=== PATIENT | male | born 2000 | race Caucasian/White ===

== ENCOUNTER 2020-07-11 08:13 | Emergency (ER) | payer OTHER, SELFPAY ==
[2020-07-11 08:25] VITALS: BP 134/55; PULSE 80; RESP 16; TEMP 36.9; O2SAT 97; BMI 29.0
--- NOTE | 2020-07-11 09:02 | ED_ITS ---
HPI - Eye Problem General Chief complaint: Eye Problems <Negrito Fisher NP - Last Filed: 07/11/20 16:48> Stated complaint: exposure work related <Negrito Fisher NP - Last Filed: 07/11/20 16:48> Time Seen by Provider: 07/11/20 08:46 <Negrito Fisher NP - Last Filed: 07/11/20 16:48> Related Data Home medications: Home Medications Medication Instructions Recorded Confirmed loratadine 07/11/20 <Negrito Fisher NP - Last Filed: 07/11/20 16:48> Allergies/adverse reactions: Allergies Allergy/AdvReac Type Severity Reaction Status Date / Time No Known Allergies Allergy Verified 07/11/20 08:29 <MELISA Iverson Last Filed: 07/11/20 16:48> Review of Systems Review of Systems: Constitutional: No Weight loss, No Fever, No Chills, No Night Sweats, No Fatigue, No Malaise ENT/Mouth: No Hearing loss, No Ear Pain, No Nasal Congestion, No Sinus Pain, No Hoarseness, No sore throat, No Rhinorrhea, No Swallowing Difficulty Eyes: No Eye Pain, No Swelling, No Redness, No Foreign Body, No Discharge, No Vision Changes Cardiovascular: No Chest Pain, No SOB, No Dyspnea on Exertion, No Orthopnea, No Edema, No Palpitations Respiratory: No Cough, No Sputum, No Wheezing, No Smoke Exposure, No Dyspnea Gastrointestinal: No Nausea, No Vomiting, No Diarrhea, No Constipation, No abdominal Pain, No Hematochezia, No Melena Genitourinary: no irregular bleeding, No Dysuria, No Urinary Frequency, No Hematuria, No Urinary Incontinence, No Urgency, No Flank Pain, No Urinary Flow Changes, No Hesitancy Musculoskeletal: No joint pain, No Myalgias, No Joint Swelling Skin: No Skin Lesions, No rash Neuro: No Weakness, No Numbness, No Paresthesias, No Loss of Consciousness, No Dizziness, No Headache Psych: No Anxiety/Panic, No Depression, No SI/HI/AH/VH, No Social Issues, Heme/Lymph: No Bruising, No Bleeding,No Lymphadenopathy Endocrine: No Polyuria, No Polydipsia, No Temperature Intolerance <MELISA Iverson Last Filed: 07/11/20 16:48> [facility] Past Medical History Medical History: Medical History (Updated 07/11/20 @ 09:18 by Negrito Fisher NP) No known health problems <Negrito Fisher NP - Last Filed: 07/11/20 16:48> Social History Social History: Social History Smoking Status: Never smoker Use of substances other than those prescribed or required for medical reasons: No Advance Directives: No Advance Directives Information Provided: No <Negrito Fisher NP - Last Filed: 07/11/20 16:48> Physical Exam Vital Signs and I&O and Narrative: Vital Signs and I&O: Vital Signs Temp 98.5 F 07/11/20 08:25 Pulse 80 07/11/20 08:25 Resp 16 07/11/20 08:25 BP 134/55 L 07/11/20 08:25 Pulse Ox 97 07/11/20 08:25 Intake & Output 07/10/20 07/11/20 07/11/20 18:59 06:59 18:59 Weight 99.79 kg Body Mass Index 29.0 <Negrito Fisher NP - Last Filed: 07/11/20 16:48> Vital Signs and I&O: Vital Signs Temp 98.5 F 07/11/20 08:25 Pulse 80 07/11/20 08:25 Resp 16 07/11/20 08:25 BP 134/55 L 07/11/20 08:25 Pulse Ox 97 07/11/20 08:25 Intake & Output 07/10/20 07/11/20 07/11/20 18:59 06:59 18:59 Weight 99.79 kg Body Mass Index 29.0 <Ki Lam DO - Last Filed: 07/11/20 17:39> Const: General: cooperative, healthy appearing, comfortable, no acute distress, well developed, alert and awake <Negrito Fisher NP - Last Filed: 07/11/20 16:48> HENMT: Head: Yes normal to inspection <Negrito Fisher NP - Last Filed: 07/11/20 16:48> Ears: hearing grossly normal bilaterally <Negrito Fisher NP - Last Filed: 07/11/20 16:48> Eyes: General: appearance normal, both eyes and all related structures <Negrito Fisher NP - Last Filed: 07/11/20 16:48> Visual Cronin: normal visual cronin by confrontation <Negrito Phillip - Last Filed: 07/11/20 16:48> Eyelids: Yes eyelids normal <[facility] Phillip DIRECTOR OF [employer] - Last Filed: 07/11/20 16:48> Conjunctivae: conjunctivae normal <[facility] Phillip - Last Filed: 07/11/20 16:48> Sclerae: sclerae normal <[facility] Fisher - Last Filed: 07/11/20 16:48> Corneas: corneas normal <[facility] Fisher - Last Filed: 07/11/20 16:48> Neck: Neck: Yes normal visual inspection <[facility] Fisher - Last Filed: 07/11/20 16:48> Chest: Chest palpation & inspection: normal inspection of the chest and normal palpation of entire chest wall <[facility] Fisher DIRECT[employer] - Last Filed: 07/11/20 16:48> Resp: Effort & Inspection: normal respiratory effort, audible wheezes, Actively coughing and respiratory distress <[facility] Fisher - Last Filed: 07/11/20 16:48> Cardio: Rate: regular rate <[facility] Fisher - Last Filed: 07/11/20 16:48> Skin: General skin exam: no rashes or lesions noted, elasticity normal and turgor normal <[facility] Fisher - Last Filed: 07/11/20 16:48> Wounds: no wounds <[facility] Fisher - Last Filed: 07/11/20 16:48> Nails: normal <[facility] Fisher, - Last Filed: 07/11/20 16:48> Extrem: General: Yes cyanosis <[facility] Fisher - Last Filed: 07/11/20 16:48> Psych: Appearance: grossly normal and well kempt <[facility] Fisher, DIRECTOR OF [employer] - Last Filed: 07/11/20 16:48> Course Course Hospital Course: select I agree with mid-level provider's documentation <Negrito Ahmaditawanda DIRECTOR OF [employer] - Last Filed: 07/11/20 16:48> MDM - Eye Problem MDM Narrative Medical decision making narrative: You otherwise healthy 20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 He is not sure if he got anything in there but definitely felt like it and did not see anything. He was sent here into the emergency room as precaution for evaluation. Exam overtly unremarkable. No complaint of pain or discomfort. Had a lengthy discussion with patient regarding exposure to blood product to the eye as probability general less than 1.8% for transmission. source patient unsure of stress minimal disease status. Post exposure labs/treatment offered. Requesting at this time to have screening with labs including hep panel, rapid HIV and defer treatment at this time. <Negrito Fisher NP - Last Filed: 07/11/20 16:48> Differential Diagnosis Differential diagnosis: Unlikely corneal abrasion, conjunctivitis, acute iritis, hyphema, periorbital cellulitis, subconjunctival hemorrhage, glaucoma and corneal ulcer <Negrito Fisher NP - Last Filed: 07/11/20 16:48> Medical Records Attestation: I reviewed the patient's medical records. <Negrito Fisher NP - Last Filed: 07/11/20 16:48> Lab Data Attestation: I reviewed the patient's lab results. <Negrito Fisher NP - Last Filed: 07/11/20 16:48> Result diagrams: : 07/11/20 09:01 07/11/20 09:01 <Negrito Fisher NP - Last Filed: 07/11/20 16:48> Labs: Lab Results 07/11/20 07/11/20 07/11/20 Range/Units 09:01 09:01 09:01 WBC 5.2 (4.8-10.8) X10*3/uL RBC 4.99 (4.60-5.80) X10*6/uL Hgb 14.9 (14.0-18.0) g/dl Hct 44.6 (42-52) % MCV 89.4 (80-98) fL MCH 29.9 (27.0-33.0) pg MCHC 33.4 (31.0-36.0) g/dl RDW 12.6 (11.0-16.0) % Plt Count 195 (160-400) X10*3/uL MPV 9.4 (9.4-12.4) fL Immature Gran % (Auto) 0.4 (0.0-0.4) % Neut % (Auto) 56.9 (45-73) % Lymph % (Auto) 26.8 (20-40) % [place] % (Auto) 13.0 H (2-11) % Eos % (Auto) 2.1 (0-4) % Baso % (Auto) 0.8 (0-2) % Neut # (Auto) 3.0 (2.0-8.3) X10*3/uL Lymph # (Auto) 1.4 (1.2-4.9) X10*3/uL [place] # (Auto) 0.7 (0.1-1.2) X10*3/uL Eos # (Auto) 0.1 (0.0-0.4) X10*3/uL Baso # (Auto) 0.0 (0.0-0.2) X10*3/uL Abs Immat Gran (auto) 0.02 (0.00-0.03) X10*3/uL Absolute Nucleated RBC 0.000 (0.0-0.012) X10*3/uL Nucleated RBC % (auto) 0.0 (0.0-0.2) /100WBC Sodium 138 (135-145) mmol/L Potassium 4.2 (3.3-5.1) mmol/l Chloride 105 (96-108) mmol/L Carbon Dioxide 25 (22-29) mmol/L Anion Gap 12 (12-20) BUN 22 H (9-16) mg/dL Creatinine 1.13 (0.5-1.4) mg/dL Estim Creat Clear Calc 127.4 Estimated GFR > 60 Random Glucose 95 (60-115) mg/dL Calcium 9.5 (8.4-10.2) mg/dL Total Bilirubin 0.3 (0.0-1.0) mg/dL Direct Bilirubin < 0.2 (0.0-0.5) mg/dL AST 46 H (5-37) U/L ALT 37 (0-40) U/L Alkaline Phosphatase 100 (39-117) U/L Total Protein 7.4 (6.5-8.0) g/dL Albumin 4.8 (3.5-5.0) g/dL Lipase 26 (8-78) U/L Hep Bs Antigen Negative (Negative) Hep Bs Antibody NONREACTIVE (Nonreactive) Hep B Core Total Ab Nonreactive (Nonreactive) Hepatitis C Ab (EIA) Nonreactive (Nonreactive) HIV 1&2 Ab/P24 Ag 4thGn Nonreactive (Nonreactive) <Negrito Fisher NP - Last Filed: 07/11/20 16:48> Lab Results 07/11/20 07/11/20 07/11/20 Range/Units 09:01 09:01 09:01 WBC 5.2 (4.8-10.8) X10*3/uL RBC 4.99 (4.60-5.80) X10*6/uL Hgb 14.9 (14.0-18.0) g/dl Hct 44.6 (42-52) % MCV 89.4 (80-98) fL MCH 29.9 (27.0-33.0) pg MCHC 33.4 (31.0-36.0) g/dl RDW 12.6 (11.0-16.0) % Plt Count 195 (160-400) X10*3/uL MPV 9.4 (9.4-12.4) fL Immature Gran % (Auto) 0.4 (0.0-0.4) % Neut % (Auto) 56.9 (45-73) % Lymph % (Auto) 26.8 (20-40) % [place] % (Auto) 13.0 H (2-11) % Eos % (Auto) 2.1 (0-4) % Baso % (Auto) 0.8 (0-2) % Neut # (Auto) 3.0 (2.0-8.3) X10*3/uL Lymph # (Auto) 1.4 (1.2-4.9) X10*3/uL [place] # (Auto) 0.7 (0.1-1.2) X10*3/uL Eos # (Auto) 0.1 (0.0-0.4) X10*3/uL Baso # (Auto) 0.0 (0.0-0.2) X10*3/uL Abs Immat Gran (auto) 0.02 (0.00-0.03) X10*3/uL Absolute Nucleated RBC 0.000 (0.0-0.012) X10*3/uL Nucleated RBC % (auto) 0.0 (0.0-0.2) /100WBC Sodium 138 (135-145) mmol/L Potassium 4.2 (3.3-5.1) mmol/l Chloride 105 (96-108) mmol/L Carbon Dioxide 25 (22-29) mmol/L Anion Gap 12 (12-20) BUN 22 H (9-16) mg/dL Creatinine 1.13 (0.5-1.4) mg/dL Estim Creat Clear Calc 127.4 Estimated GFR > 60 Random Glucose 95 (60-115) mg/dL Calcium 9.5 (8.4-10.2) mg/dL Total Bilirubin 0.3 (0.0-1.0) mg/dL Direct Bilirubin < 0.2 (0.0-0.5) mg/dL AST 46 H (5-37) U/L ALT 37 (0-40) U/L Alkaline Phosphatase 100 (39-117) U/L Total Protein 7.4 (6.5-8.0) g/dL Albumin 4.8 (3.5-5.0) g/dL Lipase 26 (8-78) U/L Hep Bs Antigen Negative (Negative) Hep Bs Antibody NONREACTIVE (Nonreactive) Hep B Core Total Ab Nonreactive (Nonreactive) Hepatitis C Ab (EIA) Nonreactive (Nonreactive) HIV 1&2 Ab/P24 Ag 4thGn Nonreactive (Nonreactive) <Ki Lam DO - Last Filed: 07/11/20 17:39> Discharge Plan Discharge Clinical Impression: Patient exposure to body fluids <Negrito Fisher NP - Last Filed: 07/11/20 16:48> Patient Disposition: Home, Self-Care <Negrito Fisher NP - Last Filed: 07/11/20 16:48> Instructions: Postexposure Prophylaxis (ED) <Negrito Fisher NP - Last Filed: 07/11/20 16:48> Prescriptions: No [facility] loratadine RF: 0 <Negrito Fisher NP - Last Filed: 07/11/20 16:48> Interventions: ED Discharge Assessment Last Done: 07/11/20 09:44 <Negrito Fisher NP - Last Filed: 07/11/20 16:48> Discharge Date/Time: 07/11/20 09:45 <Negrito Fisher NP - Last Filed: 07/11/20 16:48>
--- NOTE | 2020-07-11 09:05 | PC.NURSE ---
lab work drawn and sent to lab.
[2020-07-11 09:07] LABS: MANUAL DIFF FLAG NO
[2020-07-11 09:13] LABS: Basophils Percent Auto 0.8 % (0-2); Eosinophils Absolute Auto 0.1 X10*3/uL (0.0-0.4); Eosinophils Percent Auto 2.1 % (0-4); Hematocrit 44.6 % (42-52); Hemoglobin 14.9 g/dl (14.0-18.0); Imm Gran Abs Auto 0.02 X10*3/uL (0.00-0.03); Imm Gran Pct Auto 0.4 % (0.0-0.4); Lymphocytes Absolute Auto 1.4 X10*3/uL (1.2-4.9); Lymphocytes Percent Auto 26.8 % (20-40); Mean Corpuscular HGB Conc 33.4 g/dl (31.0-36.0); Mean Corpuscular Hemoglobin 29.9 pg (27.0-33.0); Mean Corpuscular Volume 89.4 fL (80-98); Mean Platelet Volume 9.4 fL (9.4-12.4); Monocytes Absolute Auto 0.7 X10*3/uL (0.1-1.2); Neutrophils Percent Auto 56.9 % (45-73); Platelet Count 195 X10*3/uL (160-400); Red Blood Count 4.99 X10*6/uL (4.60-5.80); Red Cell Distribution Width 12.6 % (11.0-16.0); White Blood Count 5.2 X10*3/uL (4.8-10.8)
[2020-07-11 09:41] LABS: Alanine Aminotransferase 37 U/L (0-40); Albumin Level 4.8 g/dL (3.5-5.0); Alkaline Phosphatase 100 U/L (39-117); Anion Gap 12 (12-20); Aspartate Amino Transferase 46 U/L (5-37); Bilirubin Direct < 0.2 mg/dL (0.0-0.5); Bilirubin Total 0.3 mg/dL (0.0-1.0); Blood Urea Nitrogen 22 mg/dL (9-16); Calcium 9.5 mg/dL (8.4-10.2); Carbon Dioxide 25 mmol/L (22-29); Chloride 105 mmol/L (96-108); Creatinine Clr Calc Pharmacy 127.4; Estimated Glomerular Filt Rate > 60; Glucose Random 95 mg/dL (60-115); Lipase 26 U/L (8-78); Potassium 4.2 mmol/l (3.3-5.1); Sodium 138 mmol/L (135-145); Total Protein 7.4 g/dL (6.5-8.0)
--- NOTE | 2020-07-11 09:59 | PC.NURSE ---
pt dc did not print and pt was departed. pt verbally understood. consent signed on last page of education material.
[2020-07-11 11:03] LABS: HBS Num1 2.52 mIU/mL (0-7.99); HBc Num1 0.04 S/CO (0.00-0.79); HBsAGNum1 0.23 S/CO (0.00-0.99); HIV AB/AG Nonreactive (Nonreactive); HIV Num 1 0.04 S/CO (0.00-0.99); Hepatitis B Core Antibody Nonreactive (Nonreactive); Hepatitis B Surface Antigen Negative (Negative); ~Hepatitis B Surface Antibody NONREACTIVE (Nonreactive)
[2020-07-11 11:34] LABS: ~HepC Num1 0.06 S/CO (0.00-0.79); ~Hepatitis C Antibody Nonreactive (Nonreactive)
== END 2020-07-11 09:45 | disposition home or self-care (01) ==
PROVIDERS: Nurse Practitioner Primary Care; Emergency Provider Emergency Medicine
DX: H57.13 Ocular pain, bilateral (principal); Z77.29 Contact with and (suspected) exposure to other hazardous substances
CPT/HCPCS: 36415; 80048; 80076; 83690; 85025; 86704; 86706; 86803; 87340; 87389; 99283